=== PATIENT | male | born 1950 | race Caucasian/White ===

== ENCOUNTER 2019-04-07 08:12 | Outpatient (CLI) | payer MEDICARE, OTHER ==
--- NOTE | 2019-04-08 08:45 | Ultrasound Report ---
Reason: SCREENING FOR ABD AORTA Procedure Date: 04/07/2019 Accession Number: [id number] / [id number] Procedure: US - Aorta Screening CPT Code: Final Report FULL RESULT: EXAM: AORTIC DOPPLER ULTRASOUND EXAM DATE: 04/07/2019 08:49 AM. CLINICAL HISTORY: Screening for abdominal aorta. COMPARISON: None. TECHNIQUE: Real-time sonographic imaging of retroperitoneal vascular structures, including color-flow, Doppler flow and spectral analysis was performed by the wheel molder. Multiple passenger relations representative static images were saved for review. FINDINGS: Aorta: The abdominal aorta was adequately visualized. No evidence for abdominal aortic aneurysm. Aorta: Proximal: Sagittal AP 2.3 cm. Mid: Transverse 2.0 x 2.2 cm. Distal: Transverse 1.8 x 2.0 cm. Caliber: WNL: Yes. Plaque visualized: No. Iliacs: Right Iliac: Transverse 1.2 x 1.2 cm. Left Iliac: Transverse 1.2 x 1.2 cm. Iliac Vessels: The visualized proximal common iliac arteries are normal in caliber. Other: Incidental simple left liver cyst measuring 1.2 x 1.1 x 1.1 cm and 2.7 x 2.6 x 2.6 cm without concerning features. IMPRESSION: No abdominal aortic aneurysm. RADIA
== END 2019-04-07 08:13 | disposition home or self-care (01) ==
LOC: DI 08:12
PROVIDERS: ATTEND Family Medicine
DX: Z13.6 Encounter for screening for cardiovascular disorders (principal)
CPT/HCPCS: 76706

== ENCOUNTER 2021-02-22 07:12 | Day surgery (SDC) | payer MEDICARE, BC ==
[2021-02-22] MEDS ORDERED: LACTATED RINGERS 1,000 ML IV ONE (07:40)
--- NOTE | 2021-02-22 08:00 | ANESTHESIA ---
Pre-Anesthesia VS, & Labs - Diagnosis screening exam - Procedure colonoscopy Vital Signs: Temp Pulse Resp BP Pulse Ox 36.8 C 57 L 16 154/96 H 97 02/22/21 07:35 02/22/21 07:35 02/22/21 07:35 02/22/21 07:35 02/22/21 07:35 Height: 5 ft 9 in Weight (kg): 72.4 kg Body Mass Index: 23.6 BMI Classification: Healthy weight - NPO >8 hours Home Medications and Allergies Allergies/Adverse Reactions: Allergies Allergy/AdvReac Type Severity Reaction Status Date / Time No Known Drug Allergies Allergy Verified 04/09/13 12:18 Anes History & Medical History - Anesthetic History Anesthesia Complications: reports: No previous complications - Medical History Cardiovascular: reports: None Pulmonary: reports: None Gastrointestinal: reports: None Urinary: reports: None Neuro: reports: None Musculoskeletal: reports: None Endocrine/Autoimmune: reports: None Blood Disorders: reports: None Skin: reports: None Smoking Status: Former smoker Psychosocial: reports: Cannabis (once per week) History of Cancer?: No - Surgical History General: reports: Colonoscopy, Other Orthopedic: reports: Rotator cuff repair Exam General: Alert, Oriented x3, Cooperative, No acute distress Dental: WNL Mouth Openin Fingerbreadth Neck Mobility: Normal Mallampati classification: II Thyromental Distance: 4-6 cm Mental/Cognitive Status: Alert/Oriented X3, Normal for patient Plan Anesthesia Type: Total IV Consent for Procedure(s) Verified and Reviewed: Yes Code Status: Attempt Resuscitation ASA classification: 2-Mild systemic disease Is this case an emergency?: No
[2021-02-22] MEDS ORDERED: PROPOFOL 200 MG/20 ML VIAL IVP ONE (08:32)
[2021-02-22] MEDS ORDERED: MIDAZOLAM 2 MG/2 ML VIAL ONE (08:33)
[2021-02-22] MEDS ORDERED: fentaNYL 100 MCG/2 ML VIAL ONE ×2 (08:33→08:58)
[2021-02-22] MEDS ORDERED: LACTATED RINGERS 650 ML IV ONE (09:30)
[2021-02-22 10:26] VITALS: BP 124/79
--- NOTE | 2021-02-22 10:40 | ANESTHESIA POST OP EVALUATION ---
Anesthesia Post Eval - Post Anesthesia Eval Vitals: Last Vital Signs Temp 36.5 C 02/22/21 10:00 Pulse 45 L 02/22/21 10:00 Resp 16 02/22/21 10:00 BP 124/79 02/22/21 10:00 Pulse Ox 100 02/22/21 10:00 CV Function Including HR & BP: Stable Pain Control: Satisfactory Nausea & Vomiting: Negative Mental Status: Baseline Respiratory Status: Airway Patent Hydration Status: Satisfactory Anesthesia Complications: None
== END 2021-02-22 07:13 | disposition home or self-care (01) ==
LOC: SDS 07:12
PROVIDERS: ATTEND Surgery
PROC: 0DBK8ZZ Excision of Ascending Colon, Via Natural or Artificial Opening Endoscopic (ICD-10-PCS; principal; 2021-02-22 08:15)
DX: D12.2 Benign neoplasm of ascending colon (principal); D12.1 Benign neoplasm of appendix; K64.8 Other hemorrhoids; K64.4 Residual hemorrhoidal skin tags; E23.7 Disorder of pituitary gland, unspecified; M54.50 Low back pain, unspecified; Z72.89 Other problems related to lifestyle; Z79.899 Other long term (current) drug therapy; Z87.891 Personal history of nicotine dependence
CPT/HCPCS: 45380; J7120

== ENCOUNTER 2024-01-13 14:55 | Outpatient (CLI) | payer MEDICARE, BC ==
[2024-01-13] MEDS ORDERED: iohexoL-300 100 ML VIAL ONE (15:16)
[2024-01-13] MEDS: iohexoL-300 100 ML VIAL IVP ONE (16:42)
--- NOTE | 2024-01-14 09:05 | CT Report ---
PROCEDURE: Abdomen W/WO INDICATIONS: DISORDER OF ADRENAL GLAND CONTRAST: 100ml [id number] TECHNIQUE: After the administration of intravenous contrast, 5 mm thick sections acquired from the diaphragm to the symphysis. 5 mm coronal and sagittal reformats were acquired. For radiation dose reduction, the following was used: automated exposure control, adjustment of mA and/or kV according to patient siz e. COMPARISON: None. FINDINGS: Image quality: Diagnostic Lower chest: Basal atelectasis/scarring. Suspect right fat-containing Bochdalek's hernia. Liver: Multiple nonenhancing liver lesions, representing cysts, some which with thin septations. Subc entimeter lesions are also seen, which are too small to characterize, but probably also representing cysts. Gallbladder and biliary system: Unremarkable, nondilated Pancreas: No ductal dilation Spleen: Nonenlarged Adrenals: There is a 2.2 cm left adrenal nodule containing fatty contents. Kidneys: Renal cysts are seen. The kidneys are not fully visualized. No definite solid renal mass or hydronephrosis Punctate nonobstructing right renal calculus. Vessels and lymph nodes: The main portal vein is patent. No abdominal aortic aneurysm. No pathologic lymph nodes by size criteria Bowel and peritoneum: No pathologic ascites. No evidence of small bowel obstruction. Body wall: Unremarkable Bones: Degenerative changes. Partially seen lumbar fusion hardware IMPRESSION: A 2.2 cm left adrenal nodule is present, fatty contents compatible with lipid rich adenoma. Correlate with laboratory testing to determine functional status. Other findings above. Reviewed by: Kiel Harrell MD on 01/14/2024 9:04 AM PDT Approved by: Kiel Harrell MD on 01/14/2024 9:04 AM PDT Station ID: [id number]
== END 2024-01-13 14:56 | disposition home or self-care (01) ==
LOC: DI 14:55
PROVIDERS: ATTEND Student in an Organized Health Care Education/Training Program
DX: E27.9 Disorder of adrenal gland, unspecified (principal)
CPT/HCPCS: 74170; Q9967; 36415; 80048

== ENCOUNTER 2024-01-13 14:57 | Outpatient (CLI) | payer MEDICARE, BC ==
[2024-01-13 15:35] LABS: CALCIUM 9.4 mg/dL (8.5-10.3); CREATININE 0.8 mg/dL (0.6-1.3); POTASSIUM 4.1 mmol/L (3.5-4.5)
== END 2024-01-13 14:58 | disposition home or self-care (01) ==
LOC: LAB 14:57
PROVIDERS: ATTEND Student in an Organized Health Care Education/Training Program
DX: E27.9 Disorder of adrenal gland, unspecified (principal)
CPT/HCPCS: 36415; 80048